=== PATIENT | female | born 1945 | race Caucasian/White ===

== ENCOUNTER 2020-10-03 14:49 | Emergency (ER) | payer OTHER ==
[~2020-10-03] VITALS: Ht 167.6 cm; Wt 57.8 kg
[~2020-10-03 14:49] MED LIST: ALENDRONATE SOD70 MG PO
[2020-10-03 15:33] LABS: ABSOLUTE NEUTROPHILS 3.8 thou/uL (1.4-8.2); BASOPHILS 0.8 % (0.0-2.0); EOSINOPHILS 1.4 % (0.0-3.0); HEMOGLOBIN 12.8 gm/dL (12.0-15.0); LYMPHOCYTES 23.6 % (24.0-44.0); MCH 30.4 pg (26.0-34.0); MCHC 33.7 g/dL (28.0-37.0); MCV 90.3 fL (80.0-100.0); MONOCYTES 7.6 % (1.0-8.0); PLATELET COUNT 221 thou/uL (150-400); POLYS 66.6 % (36.0-66.0); RBC 4.21 mil/uL (4.20-5.00); RDW 12.4 % (10.5-14.5); WBC 5.7 thou/uL (4.0-11.0)
[2020-10-03 15:46] LABS: CALCIUM 9.1 mg/dL (8.5-10.1); CREATININE 0.8 mg/dL (0.6-1.0); POTASSIUM 3.3 mmol/L (3.5-5.1)
[2020-10-03 15:50] LABS: ALBUMIN 3.6 g/dL (3.4-5.0); TOTAL BILIRUBIN 0.6 mg/dL (0.2-1.0)
[2020-10-03 16:42] LABS: URINE BILIRUBIN NEGATIVE (Negative); URINE BLOOD NEGATIVE (Negative); URINE CLARITY SL CLOUDY; URINE COLOR YELLOW; URINE GLUCOSE-RANDOM* NEGATIVE (Negative); URINE KETONES NEGATIVE (Negative); URINE PROTEIN (DIPSTICK) TRACE (Negative)
[2020-10-03 16:44] LABS: URINE LEUKOCYTES-REFLEX 1+ (Negative); URINE NITRITE-REFLEX POSITIVE (Negative)
[2020-10-03 17:25] LABS: BACTERIA-REFLEX >30 Many /HPF (None Seen); CASTS None Seen /LPF (None Seen); SQUAMOUS 0-3 Few /LPF (0-3)
[2020-10-03 17:26] LABS: URINE WBC-REFLEX 6-15 Few /HPF (0-5)
[2020-10-03 17:27] LABS: CALCIUM OXALATE 0-3 Few /LPF (None Seen); URINE RBC None Seen /HPF (0-2)
[2020-10-03 22:32] VITALS: BP 154/79
[2020-10-03] MEDS ORDERED: ACETAMINOPHEN500 MG PO (23:57)
[2020-10-04] MEDS ORDERED: ALPHA LIPOIC A300 MG PO (00:01)
[2020-10-04] MEDS ORDERED: NORVASC 2.5 MG2.5 M1 PO (00:02)
[2020-10-04] MEDS ORDERED: ASPERCREME1 EACH TOP (00:03)
[2020-10-04] MEDS ORDERED: COLACE100 MG PO (00:03)
[2020-10-04] MEDS ORDERED: DEPAKOTE ER250 MG PO (00:04)
[2020-10-04] MEDS ORDERED: NEURONTIN100 MG PO (00:05)
[2020-10-04] MEDS ORDERED: GLUCOSAMINE-CH1 EACH PO (00:05)
[2020-10-04] MEDS ORDERED: HALDOL 0.5 MG0.5 MG PO (00:06)
[2020-10-04] MEDS ORDERED: LEVO-T25 MCG PO (00:07)
[2020-10-04] MEDS ORDERED: LINZESS145 MCG PO (00:07)
[2020-10-04] MEDS ORDERED: LOPERAMIDE2 MG PO (00:08)
[2020-10-04] MEDS ORDERED: KLOR-CON M2020 MEQ PO (00:09)
[2020-10-04] MEDS ORDERED: OLANZAPINE10 M1 PO (00:10)
[2020-10-04] MEDS ORDERED: MYRBETRIQ25 MG PO (00:10)
[2020-10-04] MEDS ORDERED: PLAQUENIL200 MG PO (00:11)
[2020-10-04] MEDS ORDERED: OLANZAPINE ODT5 MG PO (00:11)
[2020-10-04] MEDS ORDERED: VITAMIN B-1100 M2 PO (00:12)
[2020-10-04] MEDS ORDERED: VITAMIN B COMP1 EACH PO (00:13)
[2020-10-04] MEDS ORDERED: VOLTAREN GEL 1100 G1 TOP (00:14)
[2020-10-04] MEDS ORDERED: LEXAPRO20 MG PO (07:36)
[2020-10-04] MEDS ORDERED: FOSAMAX 70 MG T70 MG PO (07:46)
[2020-10-04] MEDS ORDERED: MIRALAX119 GM PO (07:46)
[2020-10-04] MEDS ORDERED: HYDROXYCHLOROQ200 M1 PO (07:47)
== END 2020-10-03 22:33 ==
LOC: ER 14:49
PROVIDERS: Physician Assistant
DX: F31.9 Bipolar disorder, unspecified (principal); Z20.828 Contact with and (suspected) exposure to other viral communicable diseases; R45.851 Suicidal ideations; E87.6 Hypokalemia; N39.0 Urinary tract infection, site not specified; Z88.0 Allergy status to penicillin; Z88.1 Allergy status to other antibiotic agents; Z88.8 Allergy status to other drugs, medicaments and biological substances

== ENCOUNTER 2020-10-03 22:46 | Inpatient (IN) | payer OTHER ==
[~2020-10-03] VITALS: Ht 167.6 cm; Wt 56.4 kg
[2020-10-03 23:30] VITALS: BP 124/72
[2020-10-03] MEDS ORDERED: ACETAMINOPHEN500 MG PO (23:57)
[2020-10-04] MEDS ORDERED: ALPHA LIPOIC A300 MG PO (00:01)
[2020-10-04] MEDS ORDERED: NORVASC 2.5 MG2.5 M1 PO (00:02)
[2020-10-04] MEDS ORDERED: ASPERCREME1 EACH TOP (00:03)
[2020-10-04] MEDS ORDERED: COLACE100 MG PO (00:03)
[2020-10-04] MEDS ORDERED: DEPAKOTE ER250 MG PO (00:04)
[2020-10-04] MEDS ORDERED: NEURONTIN100 MG PO (00:05)
[2020-10-04] MEDS ORDERED: GLUCOSAMINE-CH1 EACH PO (00:05)
[2020-10-04] MEDS ORDERED: HALDOL 0.5 MG0.5 MG PO (00:06)
[2020-10-04] MEDS ORDERED: LEVO-T25 MCG PO (00:07)
[2020-10-04] MEDS ORDERED: LINZESS145 MCG PO (00:07)
[2020-10-04] MEDS ORDERED: LOPERAMIDE2 MG PO (00:08)
[2020-10-04] MEDS ORDERED: KLOR-CON M2020 MEQ PO (00:09)
[2020-10-04] MEDS ORDERED: OLANZAPINE10 M1 PO (00:10)
[2020-10-04] MEDS ORDERED: MYRBETRIQ25 MG PO (00:10)
[2020-10-04] MEDS ORDERED: OLANZAPINE ODT5 MG PO (00:11)
[2020-10-04] MEDS ORDERED: PLAQUENIL200 MG PO (00:11)
[2020-10-04] MEDS ORDERED: VITAMIN B-1100 M2 PO (00:12)
[2020-10-04] MEDS ORDERED: VITAMIN B COMP1 EACH PO (00:13)
[2020-10-04] MEDS ORDERED: VOLTAREN GEL 1100 G1 TOP (00:14)
--- NOTE | 2020-10-04 00:35 | NUR ---
PATIENT ADMITTED TO [facility] FROM [facility] ED AT 2230. PATIENT WAS TRANSFERRED BY CART AND PATIENT WAS ABLE TO STAND AND TRANSFER FROM CART TO BED WITH ASSIST. PATIENT IS A/0X 3. SHE TALKS VERY SOFTLY AND HARD TO HEAR. PATIENT HAS HISTORY OF BIPOLAR. SHE LIVES AT [facility]. PATIENT STATES SHE AMBULATES WITH A WALKER. PATIENT HAS PAIN IN HER BILATERAL HANDS AND SHOULDERS FROM POLYNEUROPATHY. SHE HAS OSTEOPOROSIS, HYPOTHYROIDISM, HX OF ENCEPHALOPATHY, GERD,HTN,HLD. PATIENT IS A DNR AND CONFIRMED THIS WITH NURSE. SHE IS VOLUNTARY ADMIT. SHE APPARANTLY MADE A COMMENT THAT SHE DIDN'T WANT TO BE HERE ANYMORE AND WAS SENT TO ED. SHE HAD SEEN A PSYCHIATRIST AT HER FACILITY THAT WAS STARTING HER ON NEW PSYCH MEDS. SHE HAD NOT STARTED THEM. DR SNEHA MD IS STARTING THEM TOMORROW WITH THE EXCEPTION ON LEXAPRO. SHE WILL BEGIN ZYPREXA, DEPAKOTE,HALDOL. ORDERS RECEIVED FROM DR HOOVER. HOSPITALISTJEAN CARLOS RESIDENTIAL FEE APPRAISER NOTIFIED. PATIENT CAME WITH JUST BELONGINGS OF WHITE SOCKS AND HER EYEGLASSES. PATIENT HAS BRUISING ON RIGHT BACK OF HAND FROM IV OLD INSERTION SITE. RIGHT LOWER LEG HAS MULTIPLE VEIN DISCOLORATION. PATIENT VSS. PT STATES SHE HAD BM TODAY. STATES THERE WAS NO ONE SHE WANTED ME TO NOTIFY THAT SHE WAS IN THE HOSPITAL. SHE HAS BEEN CALM AND COOPERATIVE. SHE DID DRINK SOME ICE WATER TONIGHT AND IS SLEEPING AT THIS TIME. BED IN LOW POSITION AND BED ALARM IS ON. WALKER TO BE PROVIDED FOR HER TRANSFERS FROM [facility] UNIT. PT DENIES SI/HI/AVH SINCE ON UNIT. SHE HAS A FLAT AFFECT AND APPEARS TIRED. ROUTINE ROUNDS TO ASSESS STATUS AND SAFETY OF PATIENT.
[2020-10-04] MEDS ORDERED: LEXAPRO20 MG PO (07:36)
[2020-10-04] MEDS ORDERED: MIRALAX119 GM PO (07:46)
[2020-10-04] MEDS ORDERED: FOSAMAX 70 MG T70 MG PO (07:46)
[2020-10-04] MEDS ORDERED: HYDROXYCHLOROQ200 M1 PO (07:47)
[2020-10-04 09:59] VITALS: BP 124/72
[2020-10-04 10:46] VITALS: BP 124/72
--- NOTE | 2020-10-04 11:29 | NUR ---
ACCEPTED CARE OF PATIENT FROM 7P-TO 7AM SHIFT. PT COMPLAINS OF BEING TIRED AND EATS BREAKFAST IN BED THIS AM. A/O X3. SPEECH IS CLEAR. PT COMPLAINS OF CHRONIC PAIN IN KNEES AND HANDS AND TAKES TYLENOL ON SCHEDULE FOR THIS. PT EXPRESSES THAT SHE FEELS HOPELESS AND SHE HAS ONE CHILD, A DAUGHTER WHO SHE IS NOT TO CLOSE TO FOR MANY YEARS. PT HAS GOOD EYE CONTACT WITH STAFF THIS AM. TAKES AM MEDS WHOLE. DOES COMPLAIN OF FOOD BEING BLAND.PT IS ASSISTED UP TO W/C AFTER AM MEAL AND TO GROUPS. STATES TYLENOL HAS HELPED SOME WTIH HAND PAIN.
[2020-10-04 20:42] VITALS: BP 96/57
--- NOTE | 2020-10-05 05:01 | NUR ---
ASSUMED PT'S CARE THIS PM SHIFT. ALERT AND ORIENTED. PT WAS IN HER ROOM AT TIME OF ASSESSMENT. PT WAS CALM AND COOPERATIVE. NO AGITATION OR AGGRESSION NOTED. TOOK MEDS PER EMAR. FALL PRECAUTION IN PLACE. WILL CONTINUE TO MONITOR.
[2020-10-05 08:16] VITALS: BP 122/69
--- NOTE | 2020-10-05 13:44 | NUR ---
Alert and orientated X 3-4. Denies SI/HI. States hands hurt, lidocaine patches placed. Isolating in room most of day, currently sitting in chair at bedside. Breath sounds clear. Reg HR auscultated. Color pale pink with brisk capillary refill and palpable peripheral pulses. States she had BM yesterday. Active bowel sounds over soft, rounded abdomen. Calm, cooperative and compliant most of the day.
[2020-10-05 19:21] VITALS: BP 123/75
--- NOTE | 2020-10-06 04:32 | NUR ---
ASSUMED PT'S CARE THIS PM SHIFT. ALERT AND ORIENTED. PT WAS IN HER ROOM AT TIME OF ASSESSMENT. PT WAS CALM AND COOPERATIVE WITH CARE. TOOK MEDS PER EMAR. DENIED PAIN DURING ASSESSMENT. FALL PRECAUTION IN PLACE. PT HAS A MARINELLI TO RING FOR ASSISTANCE. WILL CONTINUE TO MONITOR.
[2020-10-06 08:35] VITALS: BP 122/71
[2020-10-06] MEDS ORDERED: CETIRIZINE HCL10 MG PO (10:22)
--- NOTE | 2020-10-06 11:47 | NUR ---
PT CARE ASSUMED AT 0700. A&Ox4. PT PARTICIPATING IN GROUP. TOOK ALL MORNING MEDS. VITALS STABLE. DNR. NO BEHAVIORAL ISSUES.
[2020-10-06 20:22] VITALS: BP 127/77
--- NOTE | 2020-10-06 21:10 | NUR ---
ASSUMED CARE ON 10/06/20 @ 1900, IN BED AND COOPERATED WITH ASSESSMENT. AMBULATED WITH WALKER TO DAY ROOM FOR SNACKS. REFUSED COAL[place]OLA, PABLO. HRRR, LUNGS CTA, ABD N X 4Q, BM THIS AFTERNOON, PATIENT DESCRIBES SLIGHTLY LOOSE. REPORTS DEPRESSION NOT BAD TONIGHT, SMILES AND EXPRESSES APPRECIATION FOR HELPING HER ADJUST HER POSITION IN BED AND STRAIGHTEN SHEETS/BLANKETS. DENIES ADDIDIOTNAL NEEDS, BED IN LOW POSITION, WILL MONITOR PER UNIT PROTOCOL FOR SAFETY AND COMFORT.
[2020-10-06 21:41] VITALS: BP 127/77
[2020-10-07 07:50] VITALS: BP 138/76
[2020-10-07 10:23] VITALS: BP 138/76
--- NOTE | 2020-10-07 11:07 | NUR ---
ASSUMED CARE AT 0700 THIS MORNING. PT. ALERT AND ORIENTED X 4. SHE WAS PLEASANT AND COOPERATIVE WITH TAKING MORNING MEDICATIONS. SHE WAS ALSO COOPERATIVE WITH MORNING ASSESSMENT, NO ABNORMAL FINDINGS FOUND. SHE CONTINUES TO APPEAR DEPRESSED, WITH FLAT AFFECT.
--- NOTE | 2020-10-07 17:32 | NUR ---
SW spoke with [facility] of to set up discharge. Pt will d/c 10/08/2020 @ 11am. [facility] will provide transportation. It was asked for d/c orders to be faxed to
[2020-10-07] MEDS ORDERED: REMERON 30 MG T30 M1 PO (18:51)
[2020-10-07] MEDS ORDERED: KEFLEX500 M1 PO (18:51)
[2020-10-07 20:09] VITALS: BP 126/72
[2020-10-07 20:51] VITALS: BP 126/72
--- NOTE | 2020-10-08 01:04 | NUR ---
PATIENT STATES SHE IS READY TO GO HOME. SHE IS TO D/C BACK [facility] AT 11AM IN MORNING. PATIENT HAS CHRONIC PAIN FROM [place] AND TONIGHT AT 2000 PATIENT WITH C/O BILATERAL HAND PAIN. PATIENT GIVEN SCHEDULED ES TYLENOL 1000MG WHICH WAS SUCCESSFUL AT STOPPING MOST OF THE PAIN. PATIENT REFUSED DICLOFENAC CREAM STATING IT DOES NOT DO ANYTHING FOR HER PAIN AND SHE GETS IT IN HER EYES WHEN SHE TOUCHES HER FACE AND IT MARTELL. PATIENT HAS NOT HAD ANY LOOSE STOOLS SO FAR TONIGHT. HELD PATIENT'S HS DOSE OF COLACE D/T DIARHEA EARLIER TODAY. PATIENT IS A/0X4. DENIES SI/HI/AVH. PLEASANT AND COOPERATIVE. ROUTINE ROUNDS TO ASSESS FOR SAFETY AND STATUS OF PATIENT.
[2020-10-08 07:55] VITALS: BP 140/84
[2020-10-08 08:32] VITALS: BP 140/84
--- NOTE | 2020-10-08 10:10 | NUR ---
Care assumed of patient at 0715: Patient resting in bed at start of shift. Ambulated to dayroom with walker and supervision only. Gait steady, good balance. Alert and oriented x4. Denies depression and anxiety. Denies SI/HI/AH/VH. No statements made regarding dying. Reports chronic pain to bilateral hands. Scheduled Tylenol administered. Took AM medication whole without difficulty. Ate breakfast independently without issue. Calm, pleasant and cooperative. Alert and oriented x4. Patient happy about going back to facility today. Report called to FAY Heck at [facility] at 0935. Transport to sweet pickled fruit maker patient at 1100.
== END 2020-10-08 14:48 | DRG 885 ==
LOC: SBH 22:46
PROVIDERS: ADMIT Psychiatry & Neurology Psychiatry; ATTEND Psychiatry & Neurology Psychiatry
DX: F31.9 Bipolar disorder, unspecified (principal); R45.851 Suicidal ideations; N39.0 Urinary tract infection, site not specified; E03.9 Hypothyroidism, unspecified; Z20.828 Contact with and (suspected) exposure to other viral communicable diseases; E78.5 Hyperlipidemia, unspecified; I10 Essential (primary) hypertension; K21.9 Gastro-esophageal reflux disease without esophagitis; M15.9 Polyosteoarthritis, unspecified; F41.9 Anxiety disorder, unspecified; K59.00 Constipation, unspecified; M81.0 Age-related osteoporosis without current pathological fracture; G62.9 Polyneuropathy, unspecified; F03.90 Unspecified dementia, unspecified severity, without behavioral disturbance, psychotic disturbance, mood disturbance, and anxiety; Z79.899 Other long term (current) drug therapy; Z86.73 Personal history of transient ischemic attack (TIA), and cerebral infarction without residual deficits; Z88.1 Allergy status to other antibiotic agents; Z88.0 Allergy status to penicillin; Z88.8 Allergy status to other drugs, medicaments and biological substances
CPT/HCPCS: 10880